=== PATIENT | female | born 1950 | race Caucasian/White ===

== ENCOUNTER 2016-07-28 02:11 | Emergency (ER) | payer OTHER ==
[~2016-07-28] VITALS: Ht 170.2 cm; Wt 90.7 kg
--- NOTE | ~2016-07-28 | EKG ---
[place] [place] [address] ELECTROCARDIOGRAM REPORT Name: DAYRON WARREN [id number] Admission: 07/28/16 Attend Phys: Discharge: 07/28/16 Date of : 50 Report #: [id number] THIS REPORT FOR: //name// [facility] ED Test Date: 2016-07-28 Test Time: 02:19:02 Pat Name: DAYRON WARREN Department: Room: Gender: F Academic Computing Director: JARRELL : 1950 Requested By: Cathie Valle Order Number: [id number] MD: True Alvarado Measurements Intervals [place] Rate: 87 P: 60 CT: 151 QRS: -3 QRSD: 111 T: -4 QT: 379 QTc: 456 Interpretive Statements Sinus rhythm RSR' in V1 or V2, right VCD or RVH Nonspecific T abnrm No previous ECG available for comparison Electronically Signed On 07-28-2016 7:53:23 LACE BURN OUT TENDER by True Alvarado [email or web address] <ELECTRONICALLY SIGNED> By: True Alvarado MD, [facility]GED WITH [facility] 07/28/16 0753 0219 8 True Alvarado MD, FACC /EPI
[2016-07-28 02:45] LABS: ABSOLUTE NEUTROPHILS 4.9 thou/uL (1.4-8.2); BASOPHILS 0.6 % (0.0-2.0); HEMATOCRIT 46.1 % (37.0-47.0); HEMOGLOBIN 15.2 gm/dL (12.0-15.0); LYMPHOCYTES 28.5 % (24.0-44.0); MCH 28.5 pg (26.0-34.0); MCV 86.4 fL (80.0-100.0); PLATELET COUNT 179 thou/uL (150-400); POLYS 63.9 % (36.0-66.0); RBC 5.34 mil/uL (4.20-5.00); RDW 13.9 % (10.5-14.5); WBC 7.7 thou/uL (4.0-11.0)
[2016-07-28 02:53] LABS: ANION GAP 8 mmol/L (7-16); BUN 15 mg/dL (7-18); CALCIUM 9.1 mg/dL (8.5-10.1); CHLORIDE 102 mmol/L (98-107); CO2 28 mmol/L (21-32); CREATININE 0.9 mg/dL (0.6-1.3); GLUCOSE 116 mg/dL (70-99); POTASSIUM 4.2 mmol/L (3.5-5.1); SODIUM 138 mmol/L (136-145)
[2016-07-28 02:56] LABS: MANUAL DIFF NO
[2016-07-28 03:00] LABS: APTT 30.2 Seconds (24.5-32.8); PROTIME 10.4 Seconds (9.3-11.4)
[2016-07-28 03:09] LABS: URINE BILIRUBIN NEGATIVE (Negative); URINE BLOOD NEGATIVE (Negative); URINE COLOR YELLOW; URINE GLUCOSE-RANDOM* NEGATIVE (Negative); URINE KETONES NEGATIVE (Negative); URINE LEUKOCYTES-REFLEX 1+ (Negative); URINE PROTEIN (DIPSTICK) NEGATIVE (Negative); URINE UROBILINOGEN 0.2 E.U./dl (0.2-1.0)
[2016-07-28 03:12] LABS: ALBUMIN 4.1 g/dL (3.4-5.0); ALKALINE PHOSPHATASE 113 U/L (46-116); SGOT 17 U/L (15-37); SGPT 25 U/L (30-65); TOTAL BILIRUBIN 0.4 mg/dL (<0.1-1.0); TROPONIN-I < 0.04 ng/mL (<0.04-0.07)
[2016-07-28 03:24] LABS: CASTS None Seen /LPF (None Seen); SQUAMOUS >10 Many /LPF (0-3)
[2016-07-28 03:25] LABS: CRYSTALS None Seen /LPF (None Seen); URINE RBC None Seen /HPF (0-2); URINE WBC-REFLEX 0-5 Rare /HPF (0-5)
[2016-07-28] MEDS ORDERED: ANTIVERT25 MG PO (05:02)
[2016-07-28 05:17] VITALS: BP 164/96
== END 2016-07-28 05:18 | disposition home or self-care (01) ==
LOC: ER 02:11
PROVIDERS: Emergency Medicine
DX: R42 Dizziness and giddiness (principal); Z90.710 Acquired absence of both cervix and uterus; Z88.1 Allergy status to other antibiotic agents

== ENCOUNTER → 2016-12-11 | Outpatient (CLI) | payer OTHER ==
[~2016-12-11] MED LIST: ANTIVERT25 MG PO
== END ==
LOC: CAT 09:00
DX: S09.90XD Unspecified injury of head, subsequent encounter (principal); Z91.81 History of falling; X58.XXXD Exposure to other specified factors, subsequent encounter

== ENCOUNTER → 2017-01-20 | Outpatient (CLI) | payer OTHER | LOC: MRI 12:01 | DX: M18.12 Unilateral primary osteoarthritis of first carpometacarpal joint, left hand (principal) ==

== ENCOUNTER 2020-01-30 00:16 | Inpatient (IN) | payer OTHER ==
[2020-01-30] VITALS (8 sets, daily range): BP systolic 166–190; BP diastolic 75–107
[~2020-01-30] VITALS: Ht 170.2 cm; Wt 102.1 kg
[2020-01-30 00:48] LABS: ABSOLUTE NEUTROPHILS 4.6 thou/uL (1.4-8.2); BASOPHILS 0.3 % (0.0-2.0); EOSINOPHILS 0.7 % (0.0-3.0); HEMATOCRIT 43.6 % (37.0-47.0); HEMOGLOBIN 14.8 gm/dL (12.0-15.0); LYMPHOCYTES 24.6 % (24.0-44.0); MCH 29.4 pg (26.0-34.0); MCV 86.5 fL (80.0-100.0); MONOCYTES 6.8 % (1.0-8.0); PLATELET COUNT 217 thou/uL (150-400); POLYS 67.6 % (36.0-66.0); RBC 5.04 mil/uL (4.20-5.00); WBC 6.9 thou/uL (4.0-11.0)
[2020-01-30 01:03] LABS: ANION GAP 10 mmol/L (7-16); BUN 11 mg/dL (7-18); CALCIUM 8.6 mg/dL (8.5-10.1); CHLORIDE 100 mmol/L (98-107); CO2 24 mmol/L (21-32); GLUCOSE 123 mg/dL (74-106); POTASSIUM 3.8 mmol/L (3.5-5.1); SODIUM 134 mmol/L (136-145)
[2020-01-30 01:13] LABS: ALBUMIN 3.7 g/dL (3.4-5.0); LIPASE 187 U/L (73-393); SGOT 294 U/L (15-37); SGPT 184 U/L (30-65); TOTAL BILIRUBIN 1.1 mg/dL (0.2-1.0); TOTAL PROTEIN 7.9 g/dL (6.4-8.2); TROPONIN-I <0.06 ng/mL (<0.06)
--- NOTE | 2020-01-30 07:49 | NUR ---
ADMITTED FROM ER UNDER 'S CARE. SEEN BY KIKI ROBERTS BULL RIDER FOR HIMS. HTN TREATED PER MANAGER COMBINATION ORDER. INDEPENDENT WITH ADLs. TELE MONITORING INITATED PER MANAGER COMBINATION ORDER. KEPT NPO FOR ANTICIPATION OF SURGERY. PT AGREEABLE UNTIL SHE SPEAKS TO SURGEON. NO S/S ACUTE DISTRESS NOTED OR REPORTED AT THIS TIME. WILL CONT TO MONITOR FOR ANY CHANGES IN CONDITION.
[2020-01-30 08:28] LABS: CHOLESTEROL 198 mg/dL (<200); HDL CHOLESTEROL 42 mg/dL (>40); LDL CHOLESTEROL 124 mg/dL (<100); TC:HDL 4.7 Ratio (Not establshd); TRIGLYCERIDE 162 mg/dL (<150); VLDL 32 mg/dL (<40)
--- NOTE | 2020-01-30 08:51 | EKG ---
[facility] [place] [address] [place] [address] ELECTROCARDIOGRAM REPORT Name: DAYRON WARREN Room #: 458-P ADM IN M.R.#: [id number] Admission: 01/30/20 Attend Phys: Timothy Weaver MD Discharge: Date of : 50 Report #: [id number] THIS REPORT FOR: cc: Jose Lisa James A. DO Lundgren, Craig H. MD [facility] ~ THIS REPORT FOR: //name// [facility] ED Test Date: 2020-01-30 Test Time: 00:25:29 Pat Name: DAYRON WARREN Department: Room: [facility] Gender: F Bale Sewer: nina : 1950 Requested By: Stephen Mccrary Order Number: [id number] MD: True Alvarado Measurements Intervals [place] Rate: 82 P: 37 KS: 149 QRS: -6 QRSD: 106 T: -15 QT: 371 QTc: 434 Interpretive Statements Sinus rhythm RSR' in V1 or V2, right VCD Borderline T abnormalities, diffuse leads Compared to ECG 07/28/2016 02:19:02 [address]onspecific change in the ST and T wave segments Electronically Signed On 01-30-2020 8:50:54 CDT by True Alvarado [email or web address] <ELECTRONICALLY SIGNED> By: True Alvarado MD, [facility] 01/30/20 0850 0025 0025 True Alvarado MD, [facility] /EPI
--- NOTE | 2020-01-30 11:43 | 2DMMODE ---
[facility] [place] [address] [address] 2 D/M-MODE ECHOCARDIOGRAM Name: DAYRON WARREN Room #: 458-P ADM IN .R.#: [id number] Admission: 01/30/20 Attend Phys: Timothy Weaver MD Discharge: Date of : 50 Report #: [id number] THIS REPORT FOR: cc: Jose Lisa James A. DO Lammoglia, Francisco J. MD ~ APPROVED REPORT Study performed: 01/30/2020 10:55:37 EXAM: Comprehensive 2D, Doppler, and color-flow Echocardiogram Patient Location: Bedside Room #: [facility] Status: routine BSA: 2.13 HR: 70 bpm BP: 166/86 mmHg Rhythm: NSR Other Information Study Quality: Adequate Technically limited study due to obesity. Indications Chest pain, hypertensive urgency. 2D Dimensions RVDd: 32.00 mm IVSd: 10.00 (7-11mm) LVOT Diam: 20.24 (18-24mm) LVDd: 51.00 mm PWd: 10.00 (7-11mm) Ascending Ao: 28.10 (22-36mm) LVDs: 38.00 (25-40mm) Aortic Root: 31.24 mm Volumes Left Atrial Volume (Systole) Single Plane 4CH: 32.15 mL Single Plane 2CH: 33.39 mL LA ESV Index: 17.00 mL/m2 Aortic Valve AoV Peak Max.: 1.35 m/s AO Peak Gr.: 7.25 mmHg LVOT Max P.64 mmHg LVOT Max V: 0.95 m/s JANNETTE Vmax: 2.28 cm2 [facility] [address] [place] [address] 2 D/M-MODE ECHOCARDIOGRAM Name: KELVINDAYRON C Room #: 458-P [facility] IN [facility]#: [id number] Admission: 01/30/20 Attend Phys: Tmiothy Weaver MD Discharge: Date of : 50 Report #: [id number] Mitral Valve E/A Ratio: 0.6 MV Decel. Time: 340.22 ms MV E Max Max.: 0.56 m/s MV A Max.: 0.98 m/s MV PHT: 98.66 ms IVRT: 79.58 ms Pulmonary Valve PV Peak Max.: 0.86 m/s PV Peak Gr.: 2.93 mmHg Pulmonary Vein P Vein S: 0.65 m/s P Vein A: 0.38 m/s P Vein D: 0.31 m/s P Vein A Dur.: 93.4 msec P Vein S/D Ratio: 2.10 Tricuspid Valve TR Peak Max.: 2.49 m/s TR Peak Gr.: 25.00 mmHg Left Ventricle The left ventricle is normal size. There is normal LV segmental wall motion. There is normal left ventricular wall thickness. Left ventricular systolic function is normal. LVEF is 55-60%. Mild diastolic dysfunction is present (impaired relaxation pattern). Right Ventricle The right ventricle is normal size. The right ventricular systolic function is normal. Atria The left atrium size is normal. The right atrium size is normal. Aortic Valve The aortic valve is normal in structure. No aortic regurgitation is present. There is no aortic valvular stenosis. Mitral Valve The mitral valve is normal in structure. Trace mitral regurgitation. No evidence of mitral valve stenosis. Tricuspid Valve The tricuspid valve is normal in structure. Mild tricuspid [facility] [address] [place] [address] 2 D/M-MODE ECHOCARDIOGRAM Name: DAYRON WARREN Room #: 458-P ADM IN .R.#: [id number] Admission: 01/30/20 Attend Phys: Timothy Weaver MD Discharge: Date of : 50 Report #: [id number] regurgitation. Estimated PAP is 25mmHg plus the right atrial pressure. Pulmonic Valve The pulmonary valve is normal in structure. Trace pulmonic regurgitation. Great Vessels The aortic root is normal in size. The ascending aorta is normal in size. IVC is not well visualized. Pericardium There is no pericardial effusion. <Conclusion> The left ventricle is normal size. LVEF is 55-60%. The aortic valve is normal in structure. The mitral valve is normal in structure. Trace mitral regurgitation. The tricuspid valve is normal in structure. Mild tricuspid regurgitation. Estimated PAP is 25mmHg plus the right atrial pressure. The pulmonary valve is normal in structure. Trace pulmonic regurgitation. There is no pericardial effusion. <ELECTRONICALLY SIGNED> By: Chauncey Rosado MD 01/30/20 1142 1142 1142 Chauncey Rosado MD /INF
--- NOTE | 2020-01-30 15:49 | NUR ---
PT ADMITTED RELATED TO CHEST PAIN. CM REVIEWED CHART AND SPOKE WITH CARE TEAM. CM MET WITH PT AT BEDSIDE THIS DAY. PT IS A&O X4. CM ROLE INTRODUCED. PT INDICATED SHE LIVES IN HOUSE ALONE WITH 1 STEP TO ENTER AND 1 STEP INSIDE. PT INDICATED SHE HAD BEEN INDEPENDENT WITH GAIT AND ADLS. PT INDICATED NO HH HX. PT'S PCP IS DR. BARRIE ROBERTS. CM TO FOLLOW INDICATED WITH DC PLANNING. SURGERY WAS CONSULTED FOR POSSIBLE CHOLECYSTOMY.
--- NOTE | 2020-01-30 20:23 | NUR ---
ASSUMED PT CARE AT O700. PT ALERT X ORIENTED X4. NO COMPLAINTS OF PAIN. PT ON CLEAR LIQUIDS NOW, BUT NPO SINCE MIDNIGHT. IV LEFT AC WITH NS AT 75ML/HR. O/E CHEST CLEAR. UPX NUNO.TELE PATIENT. SURGERY TOMORROW MORNING. CALL LIGHT IN REACH. FALL PRECT IN PLACE. SHIFT REPORT GIVEN TO NIGHT NURSE.
--- NOTE | 2020-01-31 05:50 | NUR ---
ASSUMED PT CARE AT 1915. PT'S IV IN HER LEFT AC WAS INFILTRATED AT 0230. I TRIED TO PLACE A NEW IV TWICE, MY CHARGE NURSE TRIED, DESIGN PAINTER ATTEMPTED TWICE. PT STATES THAT SHE DID NOT WANT TO KEEP GETTING POKED. PT DOES NOT HAVE AN IV AT THE MOMENT. PT IS A&O X4. PT STATES THAT SHE IS NOT IN PAIN. PT IS SLEEP IN HER ROOM. WILL CONTINUE TO MONITOR.
[2020-01-31 06:26] LABS: ALBUMIN 3.5 g/dL (3.4-5.0); ANION GAP 6 mmol/L (7-16); BUN 5 mg/dL (7-18); CALCIUM 8.3 mg/dL (8.5-10.1); CHLORIDE 104 mmol/L (98-107); CO2 26 mmol/L (21-32); CREATININE 0.9 mg/dL (0.6-1.0); GLUCOSE 87 mg/dL (74-106); POTASSIUM 3.7 mmol/L (3.5-5.1); SGOT 131 U/L (15-37); SGPT 233 U/L (30-65); SODIUM 136 mmol/L (136-145); TOTAL BILIRUBIN 0.7 mg/dL (0.2-1.0); TOTAL PROTEIN 7.4 g/dL (6.4-8.2); TROPONIN-I <0.06 ng/mL (<0.06)
[2020-01-31 10:15] VITALS: BP 158/87
[2020-01-31 10:30] VITALS: BP 137/72
--- NOTE | 2020-01-31 10:32 | NUR ---
Pt was off the unit this am for a Laparoscopic cholecystectomy with Intraoperative Cholangiogram. Cm is under the inpression that pt may be transfered to 4S following procedure. Cm to follow as indicated with dc planning.
[2020-01-31 10:45] VITALS: BP 119/59
[2020-01-31 11:00] VITALS: BP 123/67
[2020-01-31 11:31] VITALS: BP 139/71
--- NOTE | 2020-01-31 11:39 | NUR ---
ASSUMED PATIENT CARE AT 1030. PATIENT WENT FOR SURGERY TODAY MORNING AND CAME BACK BY 1030. VSS, PT TOLERATING THIN LIQUIDS NOW, DIET ADVANCES TOLERATED. PT ALERT X ORIENTED X 4. WILL CALL APPROPRIATELY FOR HELP. PT'S FRIEND IS IN THE ROOM . MORNING MEDS GIVEN NOW. PT IS PLEASANT AND TALKING. NOTED PAIN OF 3. PT GETTING TRANSFERRED TO 4S. SHIFT REPORTGIVEN.
--- NOTE | 2020-01-31 13:39 | NUR ---
Transferred from [facility] at 1205pm; transferred to bed safely. S/P Lap devika this morning, back to [place] at 10:30am. A+Ox4. On room air. Vital signs stable, monitored BP closely- may have hypertensive urgency. On regular diet- pt requested to have clear liquids for lunch then will progress diet to regular for dinner as per pt; tolerated clear liquids for lunch; no nausea, no vomiting and no abdominal pain noted. Continent of bowel and bladder- able to go to the toilet with standby assist and gait belt. With SL at R hand- intact and flushing well. With IV nurse consult for midline, ? long-term antibiotic therapy- no orders; as per IV nurse, will a/w physician's orders and to contact IV team if midline still needed. With relative at bedside, update given. Falls bundle in place. Assisted in ADLs. With 4 abdominal lap sites with dermabond- C/D/I- no signs of bleeding, no drainage and no signs of infection noted. No complaints of pain and chest pain made during assessment. Pt seen and examined by KIKI Ambrose post op- For CBC and BMP 01/31. To continue monitoring patient.
[2020-01-31 21:08] VITALS: BP 149/77
--- NOTE | 2020-02-01 01:09 | NUR ---
ASSESSED AT START OF SHIFT PT A&O4. 4 LAP SITES INTACT WITH DERMABOUND AND DRY MINIMAL DRAINAGE AT SITE. PT DENIES NAUSEA FOR THIS NURSE. PAIN MANAGED WITH SCHEDULED TYLENOL AND IBUPROFEN. SCD'S IN PLACE. PT UP ADLIB TO THE BATHROOM STEADY GAIT. WALKED THE HALLWAY THIS SHIFT. CALL LIGHT IN REACH AND WILL CONT WITH POC TILL EOS.
[2020-02-01 03:40] VITALS: BP 159/74
[2020-02-01 06:33] LABS: HEMATOCRIT 41.5 % (37.0-47.0); HEMOGLOBIN 13.6 gm/dL (12.0-15.0); MCH 28.6 pg (26.0-34.0); MCHC 32.7 g/dL (28.0-37.0); MCV 87.5 fL (80.0-100.0); RBC 4.74 mil/uL (4.20-5.00); RDW 14.1 % (10.5-14.5); WBC 12.1 thou/uL (4.0-11.0)
[2020-02-01 06:44] LABS: ALBUMIN 3.6 g/dL (3.4-5.0); CALCIUM 8.6 mg/dL (8.5-10.1); POTASSIUM 3.5 mmol/L (3.5-5.1); TOTAL BILIRUBIN 0.6 mg/dL (0.2-1.0); TOTAL PROTEIN 7.5 g/dL (6.4-8.2)
[2020-02-01 07:59] VITALS: BP 152/66
[2020-02-01] MEDS ORDERED: BENICAR20 MG PO (09:25)
[2020-02-01] MEDS ORDERED: ULTRAM50 MG PO (09:25)
[2020-02-01 10:19] VITALS: BP 152/66
--- NOTE | 2020-02-01 11:28 | NUR ---
PT CARE ASSUMED AT 0700. A&0x4. PT LAPSITES INTACT. CLEANSED AND BANDAID CHANGED ON [facility] SITE. TOLERATE DIET WELL. PAIN MANAGED WELL WITH SCHEDULED TYLENOL AND IBUPROFEN. DISCHARGE INSTRUCTIONS GIVEN WITH NO QUESTIONS. IV REMOVED. PT UP INDEPENDENTLY IN THE ROOM. SCD'S IN PLACE.
--- NOTE | 2020-02-01 18:06 | PATH ---
[facility] [address] [place] [address] PATHOLOGY RPT PROCEDURE Name: RENETTA WARREN Room #: 442-P [facility] IN .R.#: [id number] Admission: 01/30/20 Date of : 50 Discharge: 02/01/20 Report #: [id number] Path Case #: [id number] [facility] Accession Number: [id number] . 01 Material submitted: . gallbladder - GALLBLADDER . 01 Clinical history: . Cholecystitis . 02 Diagnosis: Gallbladder, cholecystectomy: - Mild chronic cholecystitis. - Cholelithiasis. (IUV:taiwo; 02/01/2020) S 02/01/2020 1336 Local . 02 Electronically signed: . Carmen Milligan MD, Pathologist NPI- [id number] . 01 Gross description: . The specimen is received in formalin, labeled "Renetta Warren", "gallbladder". Received is an intact gallbladder measuring 8.5 x 3.5 x 2.7 cm. The external surface is wrinkled, shiny and pale [id number]-fzbt yellow. Opening the gallbladder reveals a green, velvety, bile-stained mucosa with no solid masses or nodules identified. The gallbladder wall measures 0.1 cm to 0.2 cm in thickness. Calculi are present and range in size from 0.1 cm to 1.5 cm. Retail Business Manager sections are submitted in cassette A1.([facility]; 01/31/2020) MENG/TREMAYNE 01/31/2020 [facility]7 Local . 02 Pathologist provided ICD-10: K80.10 . 02 CPT . 929290 Specimen Comment: A courtesy copy of this report has been sent to [phone], [phone] Specimen Comment: [phone] Specimen Comment: Report sent to / DR MISTRY Performed at: [address] [id number] MD Christiano Bird MD Phone: [phone] Performed at: 02 [place] [address] PATHOLOGY RPT PROCEDURE Name: RENETTA WARREN Room #: 442-P DIS IN M.R.#: [id number] Admission: 01/30/20 Date of : 50 Discharge: 02/01/20 Report #: [id number] Path Case #: [id number] [address] [facility], [place], [place] [id number] MD Carmen Milligan MD Phone: [phone]
--- NOTE | 2020-02-05 09:07 | HC ---
[facility] [address] [address] CONSULTATION Name: DAYRON WARREN Room #: 442-P [facility] IN M.R.#: [id number] Admission: 01/30/20 Attend Phys: Timothy Weaver MD Discharge: 02/01/20 Date of : 50 Report #: [id number] THIS REPORT FOR: cc: Jose Lisa,Jeremiah Garcia MD ~ CC: Jose Weaver DATE OF SERVICE: 01/30/2020 CONSULTING PHYSICIAN: Dr. Alicea. REASON FOR CONSULTATION: Cholecystitis. ASSESSMENT: Cholecystitis. RECOMMENDATIONS: 1. Thank you very much for the consultation. I will follow along. 2. Proceed with laparoscopic cholecystectomy with intraoperative cholangiogram to be scheduled first thing in the morning. 3. IV antibiotics. 4. Clears, n.p.o. at midnight. HISTORY OF PRESENT ILLNESS: The patient is a very pleasant 69-year-old female who had lower chest pain that radiated to her right side and into her back. The patient underwent workup and was found to have cholecystitis in the ER. The patient reports that the pain began several years ago and happens 1-2 times per week; however, after eating lunch yesterday, the pain did not go away and it continued to worsen. She denies nausea, vomiting, fevers, chills, night sweats, or shortness of air. She does endorse chest pain. She does endorse having regular nonbloody, nondiarrheal bowel movements. PAST MEDICAL HISTORY: 1. Obesity. 2. Hypertension. PAST SURGICAL HISTORY: 1. Hysterectomy. 2. Colonoscopy. SOCIAL HISTORY: Denies use of alcohol, tobacco or recreational drugs. She is retired. FAMILY HISTORY: Denies malignancy or coagulopathy. [facility] [address] [place] [address] CONSULTATION Name: DAYRON WARREN [place] Room #: 442-P [facility]#: [id number] Admission: 01/30/20 Attend Phys: Timothy Weaver MD Discharge: 02/01/20 Date of : 50 Report #: [id number] REVIEW OF SYSTEMS: CONSTITUTIONAL: No fever. No chills. HEENT: Denies blurring of vision, double vision, headaches, hearing loss, sinus drainage or sore throat. Denies blurring of vision, double vision, headaches, hearing loss, sinus drainage or sore throat. CARDIOVASCULAR: Denies chest pain, palpitations, orthopnea or paroxysmal nocturnal dyspnea. RESPIRATORY: Denies cough, wheezing, hemoptysis, or shortness of air. GASTROINTESTINAL: See above and below. GENITOURINARY: Denies dysuria or hematuria or kidney stones. No urinary frequency, urgency or incontinence. Denies dysuria or hematuria or kidney stones. No urinary frequency, urgency or incontinence. MUSCULOSKELETAL: No joint pain. No muscle pain. NEUROLOGICAL: Denies tremor, stroke or seizure. Denies tremor, stroke or seizure. HEMATOLOGIC / LYMPHATICS: Denies easy bruising, easy bleeding or enlarged lymph nodes. INTEGUMENTARY: Please see above and below. ENDOCRINE: No heat or cold intolerance PSYCHIATRIC: Denies depression, anxiety, or schizophrenia. PHYSICAL EXAMINATION: VITAL SIGNS: Temperature 36.7, pulse 91, respiratory rate 14, blood pressure 166/86, and pulse ox 97% on room air. GENERAL: No apparent distress, alert and oriented x3. HEENT: PERRLA, EOMI, MMM, NCAT NECK: Supple. No LAD CARDIOVASCULAR: Regular rhythm and rate. Hemodynamically stable. Normal capillary refill. Regular rhythm and rate. Hemodynamically stable. Normal capillary refill. PULMONARY: Nonlabored. Clear to auscultation bilaterally ABDOMEN: Soft, nontender to palpation, no guarding, no rigidity, no rebound tenderness, no hernias. EXTREMITIES: Calves soft, nontender, no edema. SKIN: No rashes or bruises. PSYCHIATRIC: Normal mood and affect Normal mood and affect NEUROLOGICAL: Grossly intact. CN II-XII grossly intact. MUSCULOSKELETAL: 5/5 strength in upper extremities and lower extremities bilaterally. LYMPHATICS: No cervical, inguinal, or supraclavicular lymphadenopathy. LABORATORY DATA: White blood count 6.9, hemoglobin 14.8, and platelets 217. Sodium is 134, potassium 3.8, creatinine 1, total bilirubin 1.1, AST 294, ALT 184, and alkaline phosphatase 179. Lipase is 187. [address] [address] CONSULTATION Name: KELVINDAYRON C Room #: 442-P [facility] IN ..#: [id number] Admission: 01/30/20 Attend Phys: Timothy Weaver MD Discharge: 02/01/20 Date of : 50 Report #: [id number] IMAGING: CTA of the chest, impression: 1. No evidence of acute pulmonary embolism. Mild atelectasis appears present in the lung base. Thickened gallbladder wall with adjacent fluid is suggesting cholecystitis. No radiodense gallstones. Radiolucent gallstones may be present. Correlation with gallbladder ultrasound recommended. Abdominal ultrasound, impression: 1. Cholelithiasis with gallbladder wall thickening suggesting cholecystitis. Trace amount of pericardial fluid may be present. Gallbladder was contracted. The gallbladder was tender with scanning. <ELECTRONICALLY SIGNED> By: Jeremiah Alicea MD 02/05/20 0907 1629 50 Jeremiah Alicea MD /nt
== END 2020-02-01 11:34 | disposition home or self-care (01) | DRG 417 ==
LOC: ER 00:16 → EROBS 03:09 → 4W 03:09 → 4S 01-31 11:51
PROVIDERS: Emergency Medicine; Nurse Practitioner; Nurse Practitioner Family; ADMIT Hospitalist; ATTEND Hospitalist
PROC: 0FT44ZZ Resection of Gallbladder, Percutaneous Endoscopic Approach (ICD-10-PCS; principal; 2020-01-31)
PROC: BF131ZZ Fluoroscopy of Gallbladder and Bile Ducts using Low Osmolar Contrast (ICD-10-PCS; 2020-01-31)
DX: K80.00 Calculus of gallbladder with acute cholecystitis without obstruction (principal); R65.11 Systemic inflammatory response syndrome (SIRS) of non-infectious origin with acute organ dysfunction; I16.0 Hypertensive urgency; E66.9 Obesity, unspecified; I10 Essential (primary) hypertension; K21.9 Gastro-esophageal reflux disease without esophagitis; E78.1 Pure hyperglyceridemia; Z20.828 Contact with and (suspected) exposure to other viral communicable diseases; Z90.710 Acquired absence of both cervix and uterus; Z68.35 Body mass index [BMI] 35.0-35.9, adult; Z88.1 Allergy status to other antibiotic agents; Z79.82 Long term (current) use of aspirin; Z79.899 Other long term (current) drug therapy
CPT/HCPCS: 10045; 10100; 10195; 50010; 50101; 50249; 50411; 50555; 50558; 51489; 52265; 52266; 53307; 53310; 53312; 54022; 54118; 55245; 56462; 56525; 56526; 56674; 62110; 62900

== ENCOUNTER 2020-02-03 12:38 | Emergency (ER) | payer OTHER ==
[~2020-02-03] VITALS: Ht 170.2 cm; Wt 121.1 kg
[~2020-02-03 12:38] MED LIST changes: +BENICAR20 MG PO; +ULTRAM50 MG PO
[2020-02-03 13:34] LABS: ABSOLUTE NEUTROPHILS 4.9 thou/uL (1.4-8.2); BASOPHILS 0.3 % (0.0-2.0); EOSINOPHILS 0.8 % (0.0-3.0); HEMATOCRIT 45.7 % (37.0-47.0); LYMPHOCYTES 21.8 % (24.0-44.0); MCH 28.8 pg (26.0-34.0); MCHC 32.8 g/dL (28.0-37.0); MCV 87.7 fL (80.0-100.0); MONOCYTES 6.5 % (1.0-8.0); PLATELET COUNT 227 thou/uL (150-400); POLYS 70.6 % (36.0-66.0); RBC 5.21 mil/uL (4.20-5.00); RDW 14.4 % (10.5-14.5)
[2020-02-03 13:44] LABS: ANION GAP 8 mmol/L (7-16); BUN 9 mg/dL (7-18); CALCIUM 8.7 mg/dL (8.5-10.1); CHLORIDE 100 mmol/L (98-107); CO2 26 mmol/L (21-32); CREATININE 0.9 mg/dL (0.6-1.0); GLUCOSE 120 mg/dL (74-106); POTASSIUM 4.5 mmol/L (3.5-5.1); SODIUM 134 mmol/L (136-145)
[2020-02-03 13:46] LABS: APTT 29.4 Seconds (24.5-32.8); PROTIME 10.3 Seconds (9.3-11.4)
[2020-02-03 13:54] LABS: ALBUMIN 3.9 g/dL (3.4-5.0); SGOT 50 U/L (15-37); SGPT 113 U/L (30-65); TOTAL BILIRUBIN 0.5 mg/dL (0.2-1.0); TOTAL PROTEIN 7.9 g/dL (6.4-8.2); TROPONIN-I <0.06 ng/mL (<0.06)
[2020-02-03] MEDS ORDERED: ASPIRIN81 M2 PO (16:23)
[2020-02-03] MEDS ORDERED: LIPITOR40 MG PO (16:23)
[2020-02-03 16:56] VITALS: BP 149/82
--- NOTE | 2020-02-05 07:51 | EKG ---
[facility] [address] [place] [address] ELECTROCARDIOGRAM REPORT Name: DAYRON WARREN Room #: [facility]#: [id number] Admission: 02/03/20 Attend Phys: Discharge: 02/03/20 Date of : 50 Report #: [id number] THIS REPORT FOR: cc: Jose Lisa James A. DO Lundgren, Craig H. MD [facility] THIS REPORT FOR: //name// [facility] ED Test Date: 2020-02-03 Test Time: 13:34:50 Pat Name: DAYRON WARREN Department: Room: Gender: F Cigar Inspector: : 1950 Requested By: Felice Rodriguez Order Number: [id number] MD: True Alvarado Measurements Intervals [place] Rate: 88 P: 42 CA: 150 QRS: -14 QRSD: 105 T: -18 QT: 378 QTc: 458 Interpretive Statements Sinus rhythm RSR' in V1 or V2, right VCD Left ventricular hypertrophy T wave abnormality Compared to ECG 01/30/2020 00:25:29 No significant change was found Electronically Signed On 02-05-2020 7:51:09 CDT by True Alvarado [email or web address] <ELECTRONICALLY SIGNED> By: True Alvarado MD, [facility] 02/05/20 0751 1334 1334 True Alvarado MD, [facility] /EPI
== END 2020-02-03 16:56 | disposition home or self-care (01) ==
LOC: ER 12:38
PROVIDERS: Emergency Medicine
DX: R20.2 Paresthesia of skin (principal); Z90.710 Acquired absence of both cervix and uterus; Z79.899 Other long term (current) drug therapy; Z88.1 Allergy status to other antibiotic agents

== ENCOUNTER 2020-02-05 09:14 | Emergency (ER) | payer OTHER ==
[~2020-02-05] VITALS: Ht 170.2 cm; Wt 121.1 kg
[~2020-02-05 09:14] MED LIST changes: +ASPIRIN81 M2 PO; +LIPITOR40 MG PO
[2020-02-05 10:29] VITALS: BP 167/81
[2020-02-06] MEDS ORDERED: BENICAR20 MG PO (02:27)
== END 2020-02-05 10:35 | disposition home or self-care (01) ==
LOC: ER 09:14
DX: R11.0 Nausea (principal); I10 Essential (primary) hypertension; Z90.710 Acquired absence of both cervix and uterus; Z79.899 Other long term (current) drug therapy; Z88.1 Allergy status to other antibiotic agents

== ENCOUNTER 2020-02-06 02:02 | Emergency (ER) | payer OTHER ==
[~2020-02-06] VITALS: Ht 170.2 cm; Wt 121.1 kg
--- NOTE | ~2020-02-06 | EMS ---
[address] [address] EMS Patient Care Report Name: DAYRON WARREN Room #: [facility] M.R.#: [id number] Admission: Attend Phys: Discharge: Date of : 50 Report #: [id number] THIS REPORT FOR: //name// Report Transmitted: 02/06/2020 01:58 EMS Care Summary [place], [place]/[facility] Incident [id number] @ 02/06/2020 01:34 Incident Location [address] [place], [place] [id number] Patient DAYRON WARREN Female, 69 Years 1950 Patient Address [address] [place] [address] Patient History Hypertension (HTN), Patient Allergies Erythromycin, Patient Medications Unknown, Chief Complaint ANXIETY Disposition Transported No Lights/[place] Dispatch Reason Chest Pain (Non-Traumatic) Transported To [facility] Narrative PT FOUND SITTING IN CHAIR. [facility] P36 ON SCENE. PT STATES THAT SHE HAS BEEN CONSTIPATED FOR A WEEK SINCE HER GALL BLADDER SURGERY AND THAT SHE WAS SEEN IN ED THIS AM FOR CHEST PAIN THAT THEY SAID WAS ANXIETY. PT HAS SAME COMPLAINT CURRENTLY AND FEELS THE SAME BUT WANTS TO GET CHECKED OUT. PT GIVEN SURGICAL [facility] [address] [place] [address] EMS Patient Care Report Name: DAYRON WARREN Room #: [facility].R.#: [id number] Admission: Attend Phys: Discharge: Date of : 50 Report #: [id number] MASK FOR TRANSPORT. TRANSPORTED WITHOUT INICDENT. Initial Vitals @01:49P: 92,R: 18,BP: 121/79,Pain: 4/10,GCS: 15,CO: 0,SpO2: 96,Revised Trauma: 12, Assessments @01:45MENTAL:No Abnormalities,SKIN:No Abnormalities,HEENT:Head/Face: No Abnormalities,Eyes: No Abnormalities,Neck/Airway: No Abnormalities,LUNG SOUNDS:ABDOMEN:PELVIS//GI:EXTREMITIES:PULSE:NEURO:No Abnormalities, Impression Anxiety reaction/Emotional upset Procedures @01:45ALS AssessmentResponse: UnchangedSucceeded Timeline 01:33,Call Received 01:33,Dispatch Notified 01:34,Dispatched 01:36,En Route 01:43,On Scene 01:45,At Patient 01:45,ALS Assessment,Response: UnchangedSucceeded, 01:48,Depart Scene 01:49,BP: 121/79 M,PULSE: 92,RR: 18 R,SPO2: 96 Ox,ETCO2: ,BG: ,PAIN: 4,GCS: 15, 02:05,At Destination 02:10,Call Closed Disclaimer v1.1 Copyright 2020 [employer] This EMS Care Summary contains data elements from the applicable legal record (which may be displayed differently). It is designed to provide pertinent information for the following purposes: continuity of care, clinical quality, and state data reporting. The complete legal record is available to ED staff and administrators of the receiving hospital in [employer]'s Patient Tracker. All data is provided "as is."
[2020-02-06] MEDS ORDERED: BENICAR20 MG PO (02:27)
[2020-02-06 02:52] LABS: ABSOLUTE NEUTROPHILS 4.7 thou/uL (1.4-8.2); BASOPHILS 0.6 % (0.0-2.0); EOSINOPHILS 0.4 % (0.0-3.0); HEMATOCRIT 41.6 % (37.0-47.0); HEMOGLOBIN 13.9 gm/dL (12.0-15.0); LYMPHOCYTES 22.3 % (24.0-44.0); MCH 28.7 pg (26.0-34.0); MCHC 33.4 g/dL (28.0-37.0); MCV 86.1 fL (80.0-100.0); MONOCYTES 6.6 % (1.0-8.0); PLATELET COUNT 238 thou/uL (150-400); POLYS 70.1 % (36.0-66.0); RBC 4.83 mil/uL (4.20-5.00); RDW 13.7 % (10.5-14.5); WBC 6.7 thou/uL (4.0-11.0)
[2020-02-06 03:01] LABS: ANION GAP 10 mmol/L (7-16); BUN 4 mg/dL (7-18); CALCIUM 8.7 mg/dL (8.5-10.1); CHLORIDE 102 mmol/L (98-107); CO2 25 mmol/L (21-32); CREATININE 0.7 mg/dL (0.6-1.0); GLUCOSE 121 mg/dL (74-106); POTASSIUM 3.9 mmol/L (3.5-5.1); SODIUM 137 mmol/L (136-145)
[2020-02-06 03:07] LABS: ALBUMIN 3.9 g/dL (3.4-5.0); DIRECT BILIRUBIN 0.1 mg/dL (<0.1-0.2); TOTAL BILIRUBIN 0.7 mg/dL (0.2-1.0); TOTAL PROTEIN 7.3 g/dL (6.4-8.2)
[2020-02-06 03:09] LABS: TROPONIN-I <0.06 ng/mL (<0.06)
[2020-02-06 03:59] VITALS: BP 188/82
--- NOTE | 2020-02-06 07:47 | EKG ---
[facility] [place] [address] ELECTROCARDIOGRAM REPORT Name: DAYRON WARREN Room #: [facility]#: [id number] Admission: 02/06/20 Attend Phys: Discharge: 02/06/20 Date of : 50 Report #: [id number] THIS REPORT FOR: cc: Jose Lisa James A. DO Lundgren, Craig H. MD [facility] THIS REPORT FOR: //name// [facility] ED Test Date: 2020-02-06 Test Time: 02:16:49 Pat Name: DAYRON WARREN Department: Room: Gender: F Engraver Machine: EDWARD : 1950 Requested By: Jordan Cordova Order Number: [id number] MD: True Alvarado Measurements Intervals [place] Rate: 89 P: 56 MA: 141 QRS: -12 QRSD: 105 T: -24 QT: 377 QTc: 459 Interpretive Statements Sinus rhythm RSR' in V1 or V2, right VCD Nonspecific T wave abnormality Compared to ECG 02/03/2020 13:34:50 No significant change was found Electronically Signed On 02-06-2020 7:47:36 CDT by True Alvarado [email or web address] <ELECTRONICALLY SIGNED> By: True Alvarado MD, [facility] 02/06/20 0747 5 True Alvarado MD, [facility] /EPI
== END 2020-02-06 04:09 | disposition home or self-care (01) ==
LOC: ER 02:02
PROVIDERS: Emergency Medicine
DX: F41.9 Anxiety disorder, unspecified (principal); I10 Essential (primary) hypertension; Z90.49 Acquired absence of other specified parts of digestive tract; Z90.710 Acquired absence of both cervix and uterus; Z79.899 Other long term (current) drug therapy; Z79.82 Long term (current) use of aspirin; Z88.1 Allergy status to other antibiotic agents

== ENCOUNTER → 2020-03-04 | Outpatient (CLI) | payer OTHER | LOC: SJCVC 13:21 | PROVIDERS: ATTEND Internal Medicine | DX: R94.31 Abnormal electrocardiogram [ECG] [EKG] (principal); I45.10 Unspecified right bundle-branch block; I10 Essential (primary) hypertension; E78.5 Hyperlipidemia, unspecified; F41.9 Anxiety disorder, unspecified; Z79.899 Other long term (current) drug therapy ==

== ENCOUNTER 2020-04-21 14:54 | Emergency (ER) | payer OTHER ==
[~2020-04-21] VITALS: Ht 170.2 cm; Wt 94.3 kg
[2020-04-21] MEDS ORDERED: QUETIAPINE FUMA25 MG PO (15:04)
[2020-04-21] MEDS ORDERED: AMOXICILLIN 50500 MG PO ×2 (15:26→15:29)
[2020-04-21] MEDS ORDERED: PREDNISONE 20 M20 MG PO ×2 (15:26→15:29)
[2020-04-21 15:33] VITALS: BP 114/96
== END 2020-04-21 15:33 | disposition home or self-care (01) ==
LOC: ER 14:54
DX: J32.9 Chronic sinusitis, unspecified (principal); B96.89 Other specified bacterial agents as the cause of diseases classified elsewhere; Z90.49 Acquired absence of other specified parts of digestive tract; Z90.710 Acquired absence of both cervix and uterus; Z79.82 Long term (current) use of aspirin; Z79.899 Other long term (current) drug therapy; Z88.1 Allergy status to other antibiotic agents

== ENCOUNTER 2020-07-05 16:02 | Emergency (ER) | payer OTHER ==
[~2020-07-05] VITALS: Ht 170.2 cm; Wt 88.0 kg
[~2020-07-05 16:02] MED LIST changes: +AMOXICILLIN 50500 MG PO; +PREDNISONE 20 M20 MG PO; +QUETIAPINE FUMA25 MG PO
[2020-07-05] MEDS ORDERED: BENICAR40 MG PO (17:59)
[2020-07-05 18:17] LABS: ABSOLUTE NEUTROPHILS 4.2 thou/uL (1.4-8.2); BASOPHILS 0.5 % (0.0-2.0); EOSINOPHILS 0.6 % (0.0-3.0); HEMATOCRIT 41.8 % (37.0-47.0); HEMOGLOBIN 13.7 gm/dL (12.0-15.0); LYMPHOCYTES 24.6 % (24.0-44.0); MCH 28.1 pg (26.0-34.0); MCHC 32.7 g/dL (28.0-37.0); MCV 85.9 fL (80.0-100.0); MONOCYTES 6.1 % (1.0-8.0); PLATELET COUNT 238 thou/uL (150-400); POLYS 68.2 % (36.0-66.0); RBC 4.87 mil/uL (4.20-5.00); RDW 14.6 % (10.5-14.5); WBC 6.2 thou/uL (4.0-11.0)
[2020-07-05 18:20] LABS: URINE BILIRUBIN NEGATIVE (Negative); URINE BLOOD NEGATIVE (Negative); URINE CLARITY CLEAR; URINE COLOR YELLOW; URINE GLUCOSE-RANDOM* NEGATIVE (Negative); URINE KETONES NEGATIVE (Negative); URINE LEUKOCYTES-REFLEX TRACE (Negative); URINE NITRITE-REFLEX NEGATIVE (Negative); URINE PROTEIN (DIPSTICK) NEGATIVE (Negative); URINE UROBILINOGEN 0.2 E.U./dl (0.2-1.0)
[2020-07-05 18:28] LABS: ANION GAP 11 mmol/L (7-16); BUN 8 mg/dL (7-18); CALCIUM 9.5 mg/dL (8.5-10.1); CHLORIDE 104 mmol/L (98-107); CO2 25 mmol/L (21-32); CREATININE 0.8 mg/dL (0.6-1.0); GLUCOSE 101 mg/dL (74-106); POTASSIUM 4.4 mmol/L (3.5-5.1); SODIUM 140 mmol/L (136-145)
[2020-07-05 18:38] LABS: SGOT 27 U/L (15-37); SGPT 33 U/L (14-59); TOTAL BILIRUBIN 0.5 mg/dL (0.2-1.0); TOTAL PROTEIN 7.7 g/dL (6.4-8.2); TROPONIN-I <0.06 ng/mL (<0.06)
[2020-07-05] MEDS ORDERED: MEDI-MECLIZINE25 MG PO (19:06)
[2020-07-05 19:20] VITALS: BP 157/78
--- NOTE | 2020-07-06 11:17 | EKG ---
[facility] [place] [address] ELECTROCARDIOGRAM REPORT Name: DAYRON WARREN Room #: [facility]#: [id number] Admission: 07/05/20 Attend Phys: Discharge: 07/05/20 Date of : 50 Report #: [id number] [facility] ED Test Date: 2020-07-05 Test Time: 17:37:17 Pat Name: DAYRON WARREN Department: Room: Gender: F Director Pharmaceutical: CHUY : 1950 Requested By: Jag Cronin Order Number: [id number] MD: Marquise Treviño Measurements Intervals [place] Rate: 72 P: 41 AR: 157 QRS: -7 QRSD: 111 T: 2 QT: 384 QTc: 421 Interpretive Statements Sinus rhythm RSR' in V1 or V2, right VCD or RVH Left ventricular hypertrophy Borderline T abnormalities, anterior leads Compared to ECG 02/06/2020 02:16:49 Right ventricular hypertrophy now present Left ventricular hypertrophy now present T-wave abnormality still present Electronically Signed On 07-06-2020 11:17:22 EXECUTIVE RECRUITER by Marquise Treviño [email or web address] <ELECTRONICALLY SIGNED> By: Marquise Treviño MD, FACC 07/06/20 1117 173 173 Marquise Treviño MD, FAC /EPI
== END 2020-07-05 19:20 | disposition home or self-care (01) ==
LOC: ER 16:02
PROVIDERS: Physician Assistant
DX: R42 Dizziness and giddiness (principal); Z90.710 Acquired absence of both cervix and uterus; Z90.49 Acquired absence of other specified parts of digestive tract; Z79.899 Other long term (current) drug therapy